=== PATIENT | male | born 1995 | race Caucasian/White ===

== ENCOUNTER 2022-11-08 21:45 | Emergency (ER) | payer OTHER ==
[~2022-11-08] VITALS: Ht 180.3 cm; Wt 95.3 kg
[2022-11-08 22:26] VITALS: BP 139/72
--- NOTE | 2022-11-09 00:56 | NUR ---
E[facility]PLETED. [facility]
[2022-11-09] MEDS ORDERED: IBUP-1842 PO (01:19)
[2022-11-09 01:23] VITALS: BP 139/72
== END 2022-11-09 01:23 | disposition home or self-care (01) ==
LOC: MED 21:45
DX: R07.89 Other chest pain (principal); R55 Syncope and collapse; F41.9 Anxiety disorder, unspecified
CPT/HCPCS: 93005; 99283